=== PATIENT | female | born 1970 | race Caucasian/White ===

== ENCOUNTER 2020-09-22 10:27 | Outpatient (CLI) | payer BC | END 2020-09-22 10:28 | disposition home or self-care (01) | LOC: CSHWCC 10:27 | PROVIDERS: ATTEND Nurse Practitioner Family | DX: S81.801D Unspecified open wound, right lower leg, subsequent encounter (principal); S81.802D Unspecified open wound, left lower leg, subsequent encounter; C43.71 Malignant melanoma of right lower limb, including hip; C43.72 Malignant melanoma of left lower limb, including hip; E03.9 Hypothyroidism, unspecified; E10.8 Type 1 diabetes mellitus with unspecified complications; R60.0 Localized edema | CPT/HCPCS: 99213; G0463 ==

== ENCOUNTER 2023-07-26 09:17 | Outpatient (CLI) | payer BC | END 2023-07-26 09:18 | disposition home or self-care (01) | LOC: CSHWCC 09:17 | PROVIDERS: ATTEND Physician Assistant | DX: I87.312 Chronic venous hypertension (idiopathic) with ulcer of left lower extremity (principal); I87.321 Chronic venous hypertension (idiopathic) with inflammation of right lower extremity; C44.92 Squamous cell carcinoma of skin, unspecified | CPT/HCPCS: 29581; 99213; G0463 ==

== ENCOUNTER 2023-08-01 11:56 | Outpatient (CLI) | payer BC | END 2023-08-01 11:57 | disposition home or self-care (01) | LOC: CSHWCC 11:56 | PROVIDERS: ATTEND Nurse Practitioner Family | DX: I87.312 Chronic venous hypertension (idiopathic) with ulcer of left lower extremity (principal); I87.321 Chronic venous hypertension (idiopathic) with inflammation of right lower extremity; C44.92 Squamous cell carcinoma of skin, unspecified | CPT/HCPCS: 29581 ==

== ENCOUNTER 2023-08-04 12:14 | Outpatient (CLI) | payer BC | END 2023-08-04 12:15 | disposition home or self-care (01) | LOC: CSHWCC 12:14 | PROVIDERS: ATTEND Nurse Practitioner Family | DX: I87.312 Chronic venous hypertension (idiopathic) with ulcer of left lower extremity (principal); I87.321 Chronic venous hypertension (idiopathic) with inflammation of right lower extremity; C44.92 Squamous cell carcinoma of skin, unspecified | CPT/HCPCS: 29581 ==

== ENCOUNTER 2023-08-09 08:13 | Outpatient (CLI) | payer BC | END 2023-08-09 08:14 | disposition home or self-care (01) | LOC: CSHWCC 08:13 | PROVIDERS: ATTEND Nurse Practitioner Family | DX: I87.312 Chronic venous hypertension (idiopathic) with ulcer of left lower extremity (principal); I87.321 Chronic venous hypertension (idiopathic) with inflammation of right lower extremity; C44.92 Squamous cell carcinoma of skin, unspecified | CPT/HCPCS: 11042 ==